=== PATIENT | male | born 1965 | race Caucasian/White ===

== ENCOUNTER 2018-11-28 08:24 | Emergency (ER) | payer OTHER ==
--- NOTE | 2018-11-28 08:57 | EDPHY ---
H & P Stated Complaint: Fall/Left lower rib pain Source: Patient Exam Limitations: No limitations - Personal History Current Tetanus/Diphtheria Vaccine: Yes - Medical/Surgical History Hx Asthma: No Hx Chronic Respiratory Disease: No Hx Diabetes: No Hx Cardiac Disease: No Hx Renal Disease: No Hx Cirrhosis: No Hx Alcoholism: No Other PMH: Denies - Social History Smoking Status: Never smoked Time Seen by Provider: 11/28/18 08:54 HPI/ROS: HPI: This is a 53-year-old male who presents with Chief Complaint: Accidental fall on ice last Saturday approximate 5 days ago, left rib pain Location: Left lateral rib Quality: Injury/pain Duration: 5 days ago Signs and Symptoms: No bleeding, no radiation, no numbness, no weakness, no tingling, no incontinence, no decreased range of motion, no swelling, + pain, no fever, no cough, no shortness of breath, no wheezing, no chest pain Timing: Acute, intermittent episodes Severity: 02/27 Context: Patient reports that he was stepping outside of his truck last Saturday while holding a cup of coffee when he lost his footing on the ice and fell directly onto his left elbow and then onto his left lateral ribs. He reports that he did not hit his head. He did lose and spill his coffee though. Patient reports that he felt immediate, constant, moderate, nonradiating pain. Since that time his left elbow discomfort has completely resolved and he has full range of motion. He currently has no left elbow complaints. He reports that he has continued discomfort in the left lateral lower rib area that is worsened with taking a deep breath. Denies LOC/head injury/neck pain/ dizziness/nausea/vomiting/amnesia. He reports he has no history of lung disease. Nonsmoker. Modifying Factors: Bigd-[id number] pain medications with minimal relief Comment: ROS: A comprehensive 10 system review of systems is otherwise negative aside from elements mentioned in the history of present illness. MEDICAL/SURGICAL/SOCIAL HISTORY: Medical history: Generally healthy. Does not take any regular medications. Surgical history: Denies Social history: Employed. Nonsmoker. CONSTITUTIONAL: Well-developed, well-nourished, middle-aged white male, awake and alert, no obvious distress HEENT: Atraumatic and normocephalic. NECK: supple, no midline tenderness, flexion 45 degrees, extension 45 degrees, right and left lateral flexion 45 degrees. No meningismus. Cardiovascular: Normal S1/S2, regular rate, regular rhythm, without murmur rub or gallop. PULMONARY/CHEST: Symmetrical and mild tenderness and the left lateral lower ribs but no ecchymosis. no crepitus. Clear to auscultation bilaterally. Good air movement. No accessory muscle usage. ABDOMEN: Soft, nondistended, nontender, no ecchymosis. BACK: No midline tenderness, no paraspinous spasm, deep tendon reflexes 2/2, no pain with straight leg raise, No foot drop. Achilles reflexes are equal bilaterally. EXTREMITIES: 2/2 pulses, strength 5/5, left ELBOW: Full extension to 180, flexion to 150, no tenderness over medial epicondyle, no tenderness over lateral epicondyle, no effusion. DIP/PIP/MCP flexion/extension intact with good light touch sensation. no deformities, no clubbing, no cyanosis or edema. NEUROLOGICAL: no focal neuro deficits. GCS 15. Light touch sensation intact. SKIN: Warm and dry, no erythema. no rash. Good capillary refill. (Bindu Hansen) Constitutional: Initial Vital Signs Temperature (C) 36.4 C 11/28/18 08:26 Heart Rate 66 11/28/18 08:26 Respiratory Rate 18 11/28/18 08:26 Blood Pressure 153/106 H 11/28/18 08:26 O2 Sat (%) 97 11/28/18 08:26 O2 Delivery Mode Room Air Allergies/Adverse Reactions: No Known Allergies Allergy (Verified 11/28/18 08:30) Home Medications: Medication Instructions Recorded Miscellaneous Medical Supply [NO 1 ea MISC AD 06/04/13 HOME MEDS] Indomethacin 11/28/18 Lidocaine 5% [Lidoderm 5% Patch] 1 ea TD DAILY PRN #6 patch 11/28/18 oxyCODONE/APAP 5/325 [Percocet 1 - 2 tab PO Q4H PRN #10 tab 11/28/18 5/325 (*)] Medical Decision Making ED Course/Re-evaluation: Vital signs reviewed and show elevated blood pressure but no hypoxia, respiratory distress. Chest x-ray with left rib series ordered Fall was mechanical in nature. No indication for left elbow x-ray at this time as full range of motion and normal elbow exam. 0924: Chest x-ray and rib series my read shows: 1. No definite left rib fracture. 2. No acute pulmonary disease. 3. No pneumothorax. Will give a prescription for Lidoderm patches and a few [place] for severe, breakthrough pain. Limited work duty with no lifting greater than 10 lb x1 week given. No signs of neurovascular compromise/tenting of skin/compartment syndrome/ extremities and joints examined above and below area of concern and are neurovascularly intact/pneumothorax. This patient was seen under the supervision of my secondary supervising physician. I evaluated care for this patient with attending. Discussed this patient with Dr. Hanna. (Bindu Hansen) I did not see this patient while he was in the emergency department. However his care was discussed with the PA while the patient was in the department. I agree with treatment plan and management (Nestor Hanna) Differential Diagnosis: Shortness of breath including but not limited to pulmonary infectious process, COPD, asthma, pulmonary embolus and congestive heart failure. (Bindu Hansen) Departure - Departure Disposition: Home, Routine, Self-Care Clinical Impression: Contusion of rib on left side Condition: Good Instructions: Rib Contusion (ED) Additional Instructions: Take Tylenol 650 mg every 4 hours and/or Ibuprofen 600 mg every 8 hours with food as needed for pain. Use Percocet every 6 hours as needed for severe/break through pain. Do not use Tylenol and Percocet concomitantly. Apply Lidoderm patch to the area every 12 hr as needed for pain. Apply ice for 30 minutes at a time; 2-3 times per day for the next 1-2 days. The x-rays obtained in the emergency department today demonstrate no evidence of an obvious fracture. Sometimes fractures are not obvious on the initial set of x-rays performed in the ED. For this reason, you should have repeat x-rays performed in 7-10 days if you are having any pain exclude the possibility of an occult fracture. Referrals: ALYSE BLACK [Other] - As per Instructions Stand Alone Forms: Work Limited Duty, Work Comp Follow Up Prescriptions: Lidocaine 5% [Lidoderm 5% Patch] 1 ea TD DAILY PRN #6 patch PRN Reason: Pain, Moderate oxyCODONE/APAP 5/325 [Percocet 5/325 (*)] 1 - 2 tab PO Q4H PRN #10 tab PRN Reason: Pain, Severe
[2018-11-28 09:46] VITALS: BP 135/82
== END 2018-11-28 09:51 | disposition home or self-care (01) ==
DX: S20.212A Contusion of left front wall of thorax, initial encounter (principal); W00.0XXA Fall on same level due to ice and snow, initial encounter; Y92.9 Unspecified place or not applicable; Y99.9 Unspecified external cause status; Y93.9 Activity, unspecified